=== PATIENT | female | born 1985 | race Caucasian/White ===

== ENCOUNTER 2020-09-16 00:28 | Emergency (ER) | payer OTHER, MEDICAID ==
[~2020-09-16] VITALS: Ht 162.6 cm; Wt 69.5 kg
[2020-09-16] MEDS ORDERED: LEXAPRO 10 MG T10 M2 PO (00:43)
[2020-09-16] MEDS ORDERED: LAMICTAL XR100 MG PO (00:43)
[2020-09-16] MEDS ORDERED: CLONAZEPAM 0.50.5 M1 PO (00:44)
[2020-09-16] MEDS ORDERED: NABUMETONE 750750 M1 PO (00:44)
[2020-09-16 00:59] LABS: ABSOLUTE EOSINOPHILS 0.1 thou/uL (0.0-0.7); ABSOLUTE LYMPHOCYTES 2.5 thou/uL (0.8-5.3); ABSOLUTE MONOCYTES 0.4 thou/uL (0.0-1.2); ABSOLUTE NEUTROPHILS 3.2 thou/uL (1.6-8.1); BASOPHILS 0.7 %; EOSINOPHILS 1.7 %; HEMATOCRIT 40.5 % (37.0-47.0); HEMOGLOBIN 13.5 gm/dL (12.0-15.0); LYMPHOCYTES 39.3 %; MCH 29.6 pg (26.0-34.0); MCHC 33.3 g/dL (28.0-37.0); MCV 89.1 fL (80.0-100.0); MONOCYTES 6.5 %; MPV 7.8 fl. (7.2-11.1); NUCLEATED RBCS 0 /100WBC; PLATELET COUNT* 264 thou/uL (150-400); POLYS 51.8 %; RBC 4.55 mil/uL (4.20-5.00); WBC 6.2 thou/uL (4.0-11.0)
[2020-09-16 01:11] LABS: CALCIUM 8.9 mg/dL (8.5-10.1); CREATININE 0.7 mg/dL (0.6-1.3); POTASSIUM 3.8 mmol/L (3.5-5.1)
[2020-09-16] MEDS ORDERED: BUTALB-APAP-CA1 EACH PO (02:33)
[2020-09-16 03:20] VITALS: BP 110/63
== END 2020-09-16 03:20 | disposition home or self-care (01) ==
LOC: M.ERS 00:28
PROVIDERS: Emergency Medicine
DX: R51.9 Headache, unspecified (principal); R53.1 Weakness; R42 Dizziness and giddiness; Z79.899 Other long term (current) drug therapy

== ENCOUNTER 2021-04-27 22:15 | Emergency (ER) | payer OTHER, MEDICAID ==
[~2021-04-27] VITALS: Ht 157.5 cm; Wt 58.5 kg
[~2021-04-27 22:15] MED LIST: BUTALB-APAP-CA1 EACH PO; CLONAZEPAM 0.50.5 M1 PO; LAMICTAL XR100 MG PO; LEXAPRO 10 MG T10 M2 PO; NABUMETONE 750750 M1 PO
[2021-04-27] MEDS ORDERED: TRILEPTAL150 MG PO (22:53)
[2021-04-27] MEDS ORDERED: TOPAMAX100 MG PO (22:53)
[2021-04-27] MEDS ORDERED: ZOLOFT25 MG PO (22:54)
[2021-04-27] MEDS ORDERED: AMBIEN5 MG PO (22:54)
[2021-04-27] MEDS ORDERED: LAMICTAL100 MG PO (22:54)
[2021-04-27 23:16] LABS: URINE BILIRUBIN NEGATIVE (Negative); URINE BLOOD TRACE (Negative); URINE CLARITY CLEAR; URINE COLOR YELLOW; URINE GLUCOSE-RANDOM NEGATIVE (Negative); URINE KETONES NEGATIVE (Negative); URINE LEUKOCYTES-REFLEX NEGATIVE (Negative); URINE NITRITE-REFLEX NEGATIVE (Negative); URINE PROTEIN NEGATIVE (Negative); URINE UROBILINOGEN 0.2 E.U./dl (0.2-1.0)
[2021-04-28] VITALS: BP 119/70
== END 2021-04-28 | disposition home or self-care (01) ==
LOC: M.ERS 22:15
PROVIDERS: Nurse Practitioner Psychiatric/Mental Health
DX: G43.109 Migraine with aura, not intractable, without status migrainosus (principal); Z20.822 Contact with and (suspected) exposure to COVID-19; R42 Dizziness and giddiness; Z79.899 Other long term (current) drug therapy